=== PATIENT | female | born 1945 | race Caucasian/White ===

== ENCOUNTER → 2020-11-21 | Outpatient (CLI) | payer MEDICARE ==
[2020-11-21 11:22] LABS: BASO # 0.02 (0.02-0.10); EOS # 0.17 (0.04-0.40); EOS % 2.9 % (1.0-5.0); HEMATOCRIT 44.1 % (37.0-47.0); HEMOGLOBIN 14.1 g/dL (12.5-16.0); MEAN CELL VOLUME 95 fl (78-100); MEAN CORPUSCULAR HEMOGLOBIN 30 pg (27-31); MEAN CORPUSCULAR HGB CONC 32 g/dL (33-37); MEAN PLATELET VOLUME 9.5 fl (7.4-10.4); MONO # 0.52 (0.20-0.80); NEU # 3.79 (1.40-6.50); PLATELET COUNT 267 K/mm3 (130-400); RED BLOOD COUNT 4.65 M/mm3 (4.10-5.30); RED CELL DISTRIBUTION WIDTH 13.2 % (11.5-14.5); WHITE BLOOD COUNT 5.8 K/mm3 (4.8-10.8)
[2020-11-21 11:34] LABS: POTASSIUM 4.3 mmol/L (3.5-5.1)
[2020-11-21 11:35] LABS: ALBUMIN 4.1 g/dL (3.4-4.8); CALCIUM 9.6 mg/dL (8.3-10.5)
[2020-11-21 11:37] LABS: TOTAL PROTEIN 7.4 g/dL (6.2-8.1)
[2020-11-21 11:39] LABS: TOTAL BILIRUBIN 0.6 mg/dL (0.2-1.2)
[2020-11-21 12:36] LABS: ERYTHROCYTE SEDIMENTATION RATE 11 mm/hr (0-30)
== END ==
LOC: LAB 11:09
PROVIDERS: Internal Medicine
DX: E78.2 Mixed hyperlipidemia (principal)

== ENCOUNTER → 2022-03-05 | Outpatient (CLI) | payer MEDICARE | LOC: LAB 11:31 | DX: D05.11 Intraductal carcinoma in situ of right breast (principal); M48.56XA Collapsed vertebra, not elsewhere classified, lumbar region, initial encounter for fracture; M51.36 Other intervertebral disc degeneration, lumbar region; I30.9 Acute pericarditis, unspecified; K57.30 Diverticulosis of large intestine without perforation or abscess without bleeding; K90.9 Intestinal malabsorption, unspecified; N28.1 Cyst of kidney, acquired; N83.202 Unspecified ovarian cyst, left side; N94.89 Other specified conditions associated with female genital organs and menstrual cycle; E78.2 Mixed hyperlipidemia ==

== ENCOUNTER → 2022-03-07 | Outpatient (CLI) | payer MEDICARE | LOC: RAD 13:26 | DX: M48.56XA Collapsed vertebra, not elsewhere classified, lumbar region, initial encounter for fracture (principal) ==

== ENCOUNTER → 2023-03-29 | Outpatient (CLI) | payer MEDICARE ==
[2023-03-29 12:05] LABS: BASO # 0.05 K/mm3 (0.02-0.10); EOS # 0.08 K/mm3 (0.04-0.40); EOS % 1.2 % (1.0-5.0); HEMATOCRIT 43.7 % (37.0-47.0); HEMOGLOBIN 13.8 g/dL (12.5-16.0); LYMPH# 1.44 K/mm3 (1.50-4.00); MEAN CELL VOLUME 95 fl (78-100); MEAN CORPUSCULAR HEMOGLOBIN 30 pg (27-31); MEAN CORPUSCULAR HGB CONC 32 g/dL (33-37); MEAN PLATELET VOLUME 9.5 fl (7.4-10.4); MONO # 0.52 K/mm3 (0.20-0.80); NEU # 4.57 K/mm3 (1.40-6.50); PLATELET COUNT 305 K/mm3 (130-400); RED BLOOD COUNT 4.59 M/mm3 (4.10-5.30); RED CELL DISTRIBUTION WIDTH 13.3 % (11.5-14.5); WHITE BLOOD COUNT 6.7 K/mm3 (4.8-10.8)
[2023-03-29 12:11] LABS: URINE APPEARANCE HAZY; URINE BLOOD 250 ery/uL (NEGATIVE); URINE COLOR YELLOW; URINE LEUKOCYTE ESTERASE 2+ (NEGATIVE); URINE NITRATE POSITIVE (NEGATIVE)
[2023-03-29 12:12] LABS: URINE BILIRUBIN NEGATIVE (NEGATIVE); URINE GLUCOSE NEGATIVE (NEGATIVE); URINE KETONE NEGATIVE (NEGATIVE); URINE PROTEIN(semi-quant) 1+ (NEGATIVE); URINE UROBILINOGEN NORMAL (NORMAL)
[2023-03-29 12:13] LABS: URINE WBC 31-50 /hpf (0-3)
[2023-03-29 12:21] LABS: CALCIUM 9.6 mg/dL (8.3-10.5)
[2023-03-29 12:23] LABS: TOTAL PROTEIN 7.8 g/dL (6.2-8.1)
[2023-03-29 12:24] LABS: TOTAL BILIRUBIN 0.5 mg/dL (0.2-1.2)
[2023-03-29 12:31] LABS: MAGNESIUM 1.82 mg/dL (1.60-2.60)
== END ==
LOC: LAB 11:38
PROVIDERS: Internal Medicine
DX: Z01.818 Encounter for other preprocedural examination (principal); H25.13 Age-related nuclear cataract, bilateral; D05.11 Intraductal carcinoma in situ of right breast

== ENCOUNTER → 2023-04-04 | Outpatient (CLI) | payer MEDICARE | LOC: LAB 10:32 | DX: N39.0 Urinary tract infection, site not specified (principal) ==

== ENCOUNTER → 2023-04-24 | Day surgery (SDC) | payer MEDICARE | END | disposition home or self-care (01) | LOC: MSO 08:36 | DX: H25.811 Combined forms of age-related cataract, right eye (principal) | CPT/HCPCS: 00142; J0171; J2250; V2632 ==

== ENCOUNTER → 2023-09-03 | Outpatient (CLI) | payer MEDICARE ==
[2023-09-03 10:27] LABS: CALCIUM 9.5 mg/dL (8.3-10.5)
[2023-09-03 10:28] LABS: TOTAL PROTEIN 7.7 g/dL (6.2-8.1)
[2023-09-03 10:30] LABS: TOTAL BILIRUBIN 0.5 mg/dL (0.2-1.2)
[2023-09-03 10:35] LABS: MAGNESIUM 1.94 mg/dL (1.60-2.60)
== END ==
LOC: LAB 09:59
PROVIDERS: Internal Medicine
DX: Z00.00 Encounter for general adult medical examination without abnormal findings (principal); Z12.11 Encounter for screening for malignant neoplasm of colon